=== PATIENT | male | born 1985 | race African-American/Black ===

== ENCOUNTER 2017-06-18 23:24 | Emergency (ER) | payer BC ==
[2017-06-18] MEDS ORDERED: Ibuprofen 800 MG TAB ONE (23:58)
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
== END 2017-06-19 00:15 | disposition home or self-care (01) ==
LOC: NAV ERS 23:24
DX: S50.01XA Contusion of right elbow, initial encounter (principal); S60.221A Contusion of right hand, initial encounter; F17.210 Nicotine dependence, cigarettes, uncomplicated; Y04.2XXA Assault by strike against or bumped into by another person, initial encounter

== ENCOUNTER 2018-01-18 19:43 | Emergency (ER) | payer BC ==
[2018-01-18] MEDS ORDERED: Adacel (T-DAP) 0.5 ML VIAL ONE (19:52)
== END 2018-01-18 20:22 | disposition home or self-care (01) ==
LOC: NAV ERS 19:43
DX: S91.331A Puncture wound without foreign body, right foot, initial encounter (principal); L03.115 Cellulitis of right lower limb; F17.210 Nicotine dependence, cigarettes, uncomplicated; W22.8XXA Striking against or struck by other objects, initial encounter
CPT/HCPCS: 90471; 90715

== ENCOUNTER 2022-10-04 10:04 | Emergency (ER) | payer BC ==
[2022-10-04 11:11] LABS: #Eosinphils 0.1 thou/uL (0.0-0.7); #Lymphocytes 1.5 thou/uL (1.20-3.40); #Monocytes 0.5 thou/uL (0.11-0.59); #Neutrophils 1.4 thou/uL (1.40-6.50); %Basophils 1.4 % (0.0-1.0); %Eosinophils 3.2 % (0.0-10.0); %Lymphocytes 41.4 % (21.0-51.0); %Monocytes 14.5 % (0.0-10.0); %Neutrophils 39.4 % (42.0-75.0); Mean Corpuscular Hemoglobin 25.9 pg (27.0-31.0); Mean Corpuscular Volume 81.1 fl (78.0-98.0); Mean Platelet Volume 7.3 fL (7.4-10.4); Platelet Count 325 10x3/uL (130-400); RBC Distribution Width 10.8 % (11.5-14.5); Red Blood Cell (RBC) Count 5.39 mill/uL (4.70-6.10); White Blood Cell (WBC) Count 3.5 10x3/uL (4.8-10.8)
[2022-10-04 11:13] LABS: ALT (SGPT) 30 U/L (8-55); AST (SGOT) 28 U/L (5-34); Albumin 4.5 g/dL (3.5-5.0); Alkaline Phosphatase 45 U/L (40-110); Anion Gap 10 mmol/L (10-20); BUN (Urea Nitrogen) 13 mg/dL (8.9-20.6); Bilirubin, Total 0.3 mg/dL (0.2-1.2); Calc. Creatinine Clearance 0 mL/min (70-130); Calcium 9.4 mg/dL (7.8-10.44); Carbon Dioxide 25 mmol/L (22-29); Chloride 109 mmol/L (98-107); Estimated GFR 114; Glucose 96 mg/dL (70-105); Potassium 4.3 mmol/L (3.5-5.1); Protein, Total 7.5 g/dL (6.0-8.3); Sodium 140 mmol/L (136-145)
[2022-10-04 11:16] LABS: INR-International Normal Ratio 0.9; Prothrombin Time 12.5 sec (12.0-14.7)
[2022-10-04 11:17] LABS: PTT 28.2 sec (22.9-36.1)
[2022-10-04 11:20] LABS: D-Dimer Test Less than 0.27 *mcg/mL (0.27-0.43)
[2022-10-04] MEDS ORDERED: traMADol HCl 50 MG TAB ONE (11:51)
[2022-10-04] MEDS ORDERED: Ketorolac Tromethamine 60 MG/2 ML VIAL ONE (11:51)
== END 2022-10-04 13:30 | disposition home or self-care (01) ==
LOC: NAV ERS 10:04
DX: M70.61 Trochanteric bursitis, right hip (principal); F17.210 Nicotine dependence, cigarettes, uncomplicated
CPT/HCPCS: 36415; 72131; 80053; 85025; 85379; 85610; 85730; 96372; J1885